=== PATIENT | female | born 1970 | race American Indian/Alaskan Native ===

== ENCOUNTER 2016-06-14 15:10 | Inpatient (IN) | payer BC ==
--- NOTE | 2016-06-14 15:50 | EDM.PDOC ---
ED HPI GI/ABDOMINAL - General Chief Complaint: Abdominal Pain Stated Complaint: HERE FROM [facility] Time Seen by Provider: 06/14/16 15:39 Source: Reports: Patient, EMS, Old records, Provider, RN notes reviewed History Limitations: Reports: No limitations - History of Present Illness INITIAL COMMENTS - FREE TEXT/NARRATIVE: 46-year-old female transfer from [facility] emergency Department for further evaluation, she is a known history of gastric bypass in 2008 has been having difficulty with swallowing has progressively gotten worse over the last week or so feels like food is getting caught, has nausea and epigastric pain. Initial evaluation in the emergency department and [facility] included treatment with morphine and Zofran which did give her pain and nausea under control lab work included a CMP CBC lipase amylase and troponin all were within normal limits, she is pain-free at this time - Related Data Allergies/ADRs: Allergies Allergy/AdvReac Type Severity Reaction Status Date / Time ciprofloxacin [From Cipro] Allergy Dizziness Verified 01/04/15 21:11 ciprofloxacin HCl Allergy Dizziness Verified 01/04/15 21:11 [From Cipro] hydromorphone HCl Allergy Itching Verified 01/04/15 21:11 [From Dilaudid] Latex, Natural Rubber Allergy Rash Verified 01/04/15 21:11 Home Meds: Home Meds Albuterol [Proventil HFA] 1 - 2 puff INH ASDIRECTED 01/04/15 [History] Cholecalciferol (Vitamin D3) [Vitamin D] 2 tab PO DAILY 01/04/15 [History] Cyanocobalamin (Vitamin B12) [Vitamin B12] 2 tab PO DAILY 01/04/15 [History] Folic Acid [Folic Acid] 1 tab PO DAILY 01/04/15 [History] GI Cocktail 1 dose PO ASDIRECTED 01/04/15 [History] Gabapentin [Gabapentin] 3 tab PO TID 01/04/15 [History] Hydrocodone/Acetaminophen [Pace 5-325] 1 tab PO QID PRN 01/04/15 [History] Methocarbamol [Methocarbamol] 2 tab PO TID PRN 01/04/15 [History] Multivitamin [Multivitamins] 1 tab PO DAILY 01/04/15 [History] Pantoprazole Sodium [Protonix] 2 tab PO DAILY 01/04/15 [History] Past Medical History HEENT History: Reports: Impaired vision Respiratory History: Reports: Asthma Genitourinary History: Reports: UTI, recurrent Other Genitourinary History: left kidney removed PODIATRIC AIDE History: Reports: Other Musculoskeletal History: fx toe in 2013 Endocrine/Metabolic History: Reports: Diabetes, type II - Infectious Disease History Infectious Disease History: Reports: Chicken pox, Mumps - Past Surgical History GI Surgical History: Reports: Bariatric procedure, Cholecystectomy, Esophageal dilatation Female Surgical History: Reports: section, Nephrectomy Social & Family History - Tobacco Use Smoking Status *Q: Never Smoker Second Hand Smoke Exposure: No - Caffeine Use Caffeine Use: Reports: Soda, Tea - Recreational Drug Use Recreational Drug Use: No ED ROS GENERAL - Review of Systems Review Of Systems: See Below Constitutional: Denies: fever, chills HEENT: Reports: No symptoms Respiratory: Reports: No Symptoms Cardiovascular: Reports: No symptoms GI/Abdominal: Reports: Abdominal pain, Difficulty swallowing, Nausea. Denies: Vomiting : Reports: no symptoms Musculoskeletal: Reports: no symptoms Skin: Reports: no symptoms ED EXAM, GI/ABD - Physical Exam Exam: See Below Exam Limited By: No limitations General Appearance: alert, WD/WN, no apparent distress Respiratory/Chest: no respiratory distress, lungs clear, normal breath sounds, no accessory muscle use Cardiovascular: regular rate, rhythm, no murmur GI/Abdominal: normal bowel sounds, soft, tenderness (epigastric). No: distention Course - Vital Signs Last Recorded V/S: Last Vital Signs Temp 99.1 F 06/14/16 15:23 Pulse 76 06/14/16 15:23 Resp 20 06/14/16 15:23 BP 129/63 06/14/16 15:23 Pulse Ox 100 06/14/16 15:23 Departure - Departure Time of Disposition: 15:49 Disposition: Admitted As Inpatient 66 Condition: good Clinical Impression: Epigastric pain Forms: ED Department Discharge - Assessment/Plan Plan: Assessment Acuity = acute Site and laterality = epigastric pain complicating the patient's known history of gastric bypass surgery Etiology = suspicious for stricture Manifestations = pain, dysphagia Location of injury = home Lab values = none Plan discussed the case with Dr. Mendoza from general surgery recommended admission, pain control, fluids clear liquids tonight n.p.o. in the morning he will evaluate the patient in the hospital Patient was in agreement with the plan all questions were answered, they were instructed to return to the emergency department or call for worsening symptoms. This note was dictated using [employer] voice recognition software please call with any questions.
[2016-06-14] MEDS ORDERED: Ondansetron 4 MG/2 ML SDV IV PRN (15:52)
[2016-06-14] MEDS ORDERED: Methocarbamol 500 MG Tab PO PRN (15:56)
[2016-06-14] MEDS: Albuterol 8 GM Inhaler INH SCH ×2 (18:05→21:45)
[2016-06-14] MEDS: Lactated Ringers 1,000 ML IV SCH (18:05)
[2016-06-14] MEDS: Morphine 2 MG/ML Syringe IVPUSH PRN ×2 (18:14→21:50)
[2016-06-14] MEDS: Gabapentin 300 MG Cap PO SCH (21:57)
[2016-06-14] MEDS ORDERED: Zolpidem 5 MG Tab PO PRN (22:13)
[2016-06-14] MEDS ORDERED: diphenhydrAMINE 50 MG/ML SDV IVPUSH PRN (22:15)
[2016-06-15] MEDS: Lactated Ringers 1,000 ML IV SCH ×2 (02:26→08:56)
[2016-06-15] MEDS: Albuterol 8 GM Inhaler INH SCH ×2 (04:25→10:00)
[2016-06-15] MEDS: Morphine 2 MG/ML Syringe IVPUSH PRN ×2 (04:41→07:58)
[2016-06-15] MEDS ORDERED: Pantoprazole 40 MG Tab.CR PO SCH (07:30)
[2016-06-15] MEDS ORDERED: Propofol 200 MG/20 ML SDV ONE (08:06)
[2016-06-15] MEDS ORDERED: fentaNYL 100 MCG/2 ML SDV ONE (08:06)
[2016-06-15] MEDS ORDERED: Midazolam 1 MG/ML 2 ML SDV ONE (08:06)
[2016-06-15] MEDS ORDERED: Folic Acid 1 MG Tab PO SCH (09:00)
[2016-06-15] MEDS ORDERED: Cholecalciferol (Vitamin D3) 1,000 Unit Tab PO SCH (09:00)
[2016-06-15] MEDS ORDERED: Cyanocobalamin (Vitamin B12) 1,000 MCG Tab PO SCH (09:00)
[2016-06-15] MEDS ORDERED: Multivitamins with Iron/Calcium/Folic Acid/Minerals Tab PO SCH (09:00)
[2016-06-15] MEDS ORDERED: Iohexol 647 MG/ML 10 ML SDV PO SCH (09:15)
[2016-06-15] MEDS ORDERED: Morphine PF 150 MG/30 ML PCA Syringe IV PRN (09:21)
[2016-06-15] MEDS ORDERED: Naloxone 0.4 MG/ML SDV IV PRN (09:21)
[2016-06-15 09:27] VITALS: BP 126/66
[2016-06-15] MEDS ORDERED: Pantoprazole 40 MG Vial IV SCH (10:00)
[2016-06-15] MEDS ORDERED: Sodium Chloride 0.9% 10 ML SDV FLUSH ONE (11:46)
[2016-06-15] MEDS ORDERED: Iopamidol 612 MG/ML 100 ML Bottle IV PRN (11:46)
[2016-06-15] MEDS ORDERED: Sodium Chloride 0.9% 100 ML IV SCH (12:00)
[2016-06-15] MEDS: Gabapentin 300 MG Cap PO SCH ×2 (13:01→13:03)
[2016-06-15] MEDS: Cyanocobalamin (Vitamin B12) 1,000 MCG/ML SDV IM ONE ×2 (13:02→13:07)
--- NOTE | 2016-06-16 14:41 | OR ---
DATE OF PROCEDURE: 06/15/2016 PREOPERATIVE DIAGNOSIS: Epigastric pain. POSTOPERATIVE DIAGNOSIS: Normal upper gastrointestinal endoscopic examination, status post Steven-en-Y gastric bypass. OPERATIVE PROCEDURE: Upper GI endoscopy with biopsy of gastric pouch for CLOtest. ANESTHESIA: IV sedation. INDICATION FOR PROCEDURE: This is a 46-year-old status post Steven-en-Y gastric bypass, presenting over yesterday afternoon with upper abdominal pain. Plan is to proceed with upper GI endoscopy with biopsies as indicated. Potential risks including bleeding and perforation were discussed, and the patient wishes to proceed. DETAILS OF PROCEDURE: The patient was taken to the operating room and placed in the left lateral decubitus position. IV sedation was administered, after which the upper GI endoscope was passed orally through the length of the esophagus and into the gastric pouch, from there through the gastrojejunostomy roughly 20 cm into the Steven limb. Findings included essentially and entirely normal exam. The hypopharynx, larynx, upper esophageal sphincter, and esophageal body were all unremarkable. There was no hiatal hernia or inflammation at the EG junction. The gastric pouch was uninflamed and normally sized. The gastrojejunostomy was widely patent and with no marginal ulcer and the remaining portion of the Steven limb was unremarkable. At this point, biopsies were taken from the gastric pouch and sent for CLOtest for H. pylori. Minimal bleeding from the biopsy sites was seen and the procedure then concluded. The patient was taken to the recovery room in satisfactory condition. Plan will be to check an H. pylori antibody titer tomorrow and we will initiate proton pump inhibitor use in case we are dealing with gastritis or ulcer disease in the bypassed stomach or duodenum and obtain a CT scan of the abdomen later this morning as well. Jignesh Mendoza MD /[id number]
--- NOTE | 2016-06-16 22:20 | PN ---
DATE OF SERVICE: 06/15/2016 The patient was admitted yesterday afternoon with onset of epigastric pain. Overnight, she has been fairly comfortable. She did require two doses of morphine. She had upper endoscopy, this was done this morning which showed entirely normal exam and status post Steven- en-Y gastric bypass. The patient is status post previous cholecystectomy. At this point, the possibility we are dealing with a gastritis or ulcer disease in the bypassed portion of the stomach or duodenum and given this, we will initiate IV Protonix and obtain a CT scan of the abdomen and pelvis today. The patient will be having some labs redrawn including amylase and lipase tomorrow morning as well. Of note, her ferritin level is normal status post gastric bypass, and she does take her vitamin B12 reasonably on schedule. Jignesh Mendoza MD /[id number]
--- NOTE | 2016-07-02 13:48 | DISCH ---
FINAL DIAGNOSES: Epigastric pain, status post Steven-en-Y gastric bypass with normal upper gastrointestinal endoscopic examination. OPERATIVE PROCEDURE: Upper gastrointestinal endoscopy with biopsy of gastric pouch for CLOtest. SUMMARY: This is a 46-year-old status post Steven-en-Y gastric bypass. She has in the past had problems with ulcer disease at her gastrojejunostomy. She has not presently been on any antisecretory medications. After admission and hydration, the patient underwent an upper GI endoscopy which to the viewable extent was entirely normal. Biopsies were obtained from the CLOtest and sent for H. pylori assay. The plan will be to initiate proton pump inhibitors. We will also check a H. pylori antibody titer. If that is positive or the CLOtest is positive, we will check the H. pylori status. It is possible that she is having some old gastritis or ulcer disease in the bypassed stomach or duodenum. We did obtain a CT scan later in the day, which showed no specific acute problems. Specifically, there was no thickening in the stomach or duodenum. The patient will be discharged home on Protonix, and followup will be arranged in 7-10 days with Cinthia Treviño PA-C, in [facility].
== END 2016-06-15 15:45 | disposition home or self-care (01) | DRG 241 ==
LOC: JP.ED 15:10 → JP.2SS 15:52 → OBSVTOIN 06-15 09:00
PROVIDERS: ADMIT Surgery; ATTEND Surgery
PROC: 0DB68ZX Excision of Stomach, Via Natural or Artificial Opening Endoscopic, Diagnostic (ICD-10-PCS; principal; 2016-06-15)
DX: K29.70 Gastritis, unspecified, without bleeding (principal); K26.9 Duodenal ulcer, unspecified as acute or chronic, without hemorrhage or perforation; K25.9 Gastric ulcer, unspecified as acute or chronic, without hemorrhage or perforation; R13.10 Dysphagia, unspecified; Z86.39 Personal history of other endocrine, nutritional and metabolic disease; J45.909 Unspecified asthma, uncomplicated; Z98.84 Bariatric surgery status; Z87.440 Personal history of urinary (tract) infections; H54.7 Unspecified visual loss; Z90.5 Acquired absence of kidney; Z88.1 Allergy status to other antibiotic agents; Z91.040 Latex allergy status
CPT/HCPCS: 36415; 74177; 80053; 81001; 82728; 85025; 87081; 96361; 96374; 96376; 99284; A9270-GY; C9113; G0378; J2250; J2270; J2704; J3010; J3420; J7030; J7050; J7120; Q9967